=== PATIENT | female | born 1960 | race Caucasian/White ===

== ENCOUNTER → 2016-06-22 | Outpatient (CLI) | payer OTHER | LOC: RAD 09:15 | DX: Z12.31 Encounter for screening mammogram for malignant neoplasm of breast (principal) ==

== ENCOUNTER → 2016-09-06 | Outpatient (CLI) | payer OTHER ==
[2016-09-06 10:26] LABS: ALKALINE PHOSPHATASE 43 U/L (46-116); ANION GAP 7 mmol/L (7-16); BUN 15 mg/dL (7-18); CALCIUM 9.3 mg/dL (8.5-10.1); CHLORIDE 102 mmol/L (98-107); CHOLESTEROL 216 mg/dL (<200); CO2 27 mmol/L (21-32); CREATININE 0.8 mg/dL (0.6-1.0); GLUCOSE 87 mg/dL (74-106); HDL CHOLESTEROL 93 mg/dL (>40); LDL CHOLESTEROL 116 mg/dL (<100); POTASSIUM 3.9 mmol/L (3.5-5.1); SGOT 18 U/L (15-37); SGPT 20 U/L (30-65); SODIUM 136 mmol/L (136-145); TC:HDL 2.3 Ratio (Not establshd); TOTAL BILIRUBIN 0.8 mg/dL (<0.1-1.0); TOTAL PROTEIN 7.6 g/dL (6.4-8.2); TRIGLYCERIDE 36 mg/dL (<150); VLDL 7 mg/dL (<40)
== END ==
LOC: LABMALL 07:57
PROVIDERS: Obstetrics & Gynecology
DX: N95.9 Unspecified menopausal and perimenopausal disorder (principal)

== ENCOUNTER → 2017-07-13 | Outpatient (CLI) | payer OTHER | LOC: RAD 08:18 | DX: Z12.31 Encounter for screening mammogram for malignant neoplasm of breast (principal) ==

== ENCOUNTER → 2018-01-16 | Outpatient (CLI) | payer OTHER | LOC: RAD 03:51 | DX: N63.12 Unspecified lump in the right breast, upper inner quadrant (principal) ==

== ENCOUNTER → 2018-04-25 | Outpatient (CLI) | payer OTHER | LOC: RAD 12:09 | DX: M11.261 Other chondrocalcinosis, right knee (principal); M25.861 Other specified joint disorders, right knee ==

== ENCOUNTER → 2018-06-26 | Outpatient (CLI) | payer OTHER | LOC: RAD 04:03 | DX: N60.01 Solitary cyst of right breast (principal); R92.2 Inconclusive mammogram ==

== ENCOUNTER → 2018-07-09 | Outpatient (CLI) | payer OTHER | LOC: RAD 15:09 | DX: M81.0 Age-related osteoporosis without current pathological fracture (principal); M85.852 Other specified disorders of bone density and structure, left thigh; E28.39 Other primary ovarian failure; M54.2 Cervicalgia ==

== ENCOUNTER → 2018-08-02 | Outpatient (CLI) | payer OTHER | LOC: MRI 14:30 | DX: M50.121 Cervical disc disorder at C4-C5 level with radiculopathy (principal); M48.02 Spinal stenosis, cervical region; M25.78 Osteophyte, vertebrae ==

== ENCOUNTER → 2019-08-07 | Outpatient (CLI) | payer OTHER | LOC: BC 07-09 11:10 | DX: Z12.31 Encounter for screening mammogram for malignant neoplasm of breast (principal) ==

== ENCOUNTER → 2020-08-06 | Outpatient (CLI) | payer OTHER | LOC: BC 07:50 | PROVIDERS: ATTEND Obstetrics & Gynecology | DX: Z12.31 Encounter for screening mammogram for malignant neoplasm of breast (principal) ==